=== PATIENT | female | born 1960 | race Two or more races ===

== ENCOUNTER 2018-06-08 11:59 | Day surgery (SDC) | payer BC ==
[2018-06-08] MEDS ORDERED: LABETALOL HCL 20MG INJ IV (14:00)
[2018-06-08] MEDS ORDERED: ONDANSETRON 4 MG INJ IV (14:00)
[2018-06-08] MEDS ORDERED: hydrALAzine 20 MG INJ IV (14:00)
[2018-06-08] MEDS ORDERED: METOCLOPRAMIDE 10 MG INJ IV (14:00)
== END 2018-06-08 16:13 | disposition home or self-care (01) ==
LOC: GIL 11:59
DX: Z12.11 Encounter for screening for malignant neoplasm of colon (principal); K29.50 Unspecified chronic gastritis without bleeding; K29.80 Duodenitis without bleeding; K64.8 Other hemorrhoids; K26.3 Acute duodenal ulcer without hemorrhage or perforation; K25.3 Acute gastric ulcer without hemorrhage or perforation; K44.9 Diaphragmatic hernia without obstruction or gangrene; I10 Essential (primary) hypertension; E78.5 Hyperlipidemia, unspecified; Z86.73 Personal history of transient ischemic attack (TIA), and cerebral infarction without residual deficits
CPT/HCPCS: 43239; 88305; 88312